=== PATIENT | female | born 1960 | race African-American/Black ===

== ENCOUNTER 2017-03-20 08:55 | Inpatient (IN) | payer MEDICARE, OTHER ==
[~2017-03-20] VITALS: Ht 167.6 cm; Wt 54.2 kg
--- NOTE | ~2017-03-20 | HP ---
Unit #: [id number] #: [id number] Patient: DAVID BARNHART [id number] [address] [place], [place] [address] [id number] E MR#: [id number] NAME: DAVID BARNHART ROOM: Age: 56 Sex: F Admission Date: 03/20/2017 : 1960 Attending Physician: Brittany Marie M.D. Primary Care Physician: Emilie Jack M.D. HISTORY AND PHYSICAL CHIEF COMPLAINT Nausea and vomiting. HISTORY OF PRESENT ILLNESS The patient is a 56-year-old female with history of breast cancer back in 2014 and bladder cancer status post chemo two weeks ago. Brought to the emergency room complaining of nausea and vomiting. The patient is a poor historian. The history is obtained by speaking with the patient's daughter and son at the bedside. The patient started complaining of abdominal pain and nausea and vomiting. The patient had a CT of the abdomen and pelvis that showed that the patient has thickening of the small bowel concerning for enteritis and is being admitted for the above reasons. The patient denies any fever. Denies any chills. PAST MEDICAL HISTORY Breast cancer, hypertension and bladder cancer. PAST SURGICAL HISTORY History of right mastectomy and left mastectomy and toe surgery. SOCIAL HISTORY The patient smokes a pack of cigarettes daily. She reports occasional alcohol use and marijuana use. FAMILY HISTORY Notable for her sister having allergic reaction. ALLERGIES Codeine. HOME MEDICATIONS The patient is on hydrocodone/acetaminophen, Flexeril, anastrozole, Norvasc and pantoprazole. REVIEW OF SYSTEMS Positive for abdominal pain. Positive for nausea and vomiting. Negative for chest pain. Negative for chills. Negative for shortness of breath. All other symptoms have been reviewed and none. PHYSICAL EXAMINATION GENERAL: The patient is lying in the bed, not in acute distress. VITALS: Temperature 97.9, pulse 57, respiratory rate 20, blood pressure 149/85, satting 99% on room air. HEENT: Head atraumatic, normocephalic. Pupils are equal, round, reactive Unit #: [id number] #: [id number] Patient: DAVID BARNHART to light and accommodation. Extraocular movements are intact. Dry mucous membranes. NECK: Supple. LUNGS: Decreased air entry at the bases. CARDIOVASCULAR: Regular rate and rhythm. ABDOMEN: Soft. Positive bowel sounds and tenderness in the epigastric region. EXTREMITIES: No cyanosis. No clubbing. NEUROLOGIC: Alert, awake, oriented. No gross focal motor deficit. DIAGNOSTIC STUDIES LAB DATA: UA shows 1+ leukocyte esterase, 2+ ketones, 1+ blood, 5-10 urine RBCs. INR is 1. Urine drug screen is positive for marijuana and opiates. WBC 7.8, hemoglobin 12.4, hematocrit 38.6, platelets 377. Sodium 140, potassium 3.6, chloride 101, bicarb 27, glucose 158, BUN 10, creatinine 0.9, calcium 10.3, AST 29, ALT 23, lipase 23, lactic acid 3.1. IMAGING: Chest x-ray shows hyperinflated lungs consistent with emphysema. Mild cardiomegaly. No active pulmonary disease. CARDIOVASCULAR: The EKG shows sinus bradycardia at a rate of 46 beats per minute and QTc of 420. ASSESSMENT 1. Sepsis. 2. Enteritis. 3. Emphysema. PLAN Plan to admit the patient to inpatient. Continue with sepsis protocol and continue with IV antibiotics with Cipro and Flagyl. Continue with Zofran for supportive care. Further recommendations will follow as more lab results are available. Dictated by Nick Paz/sean TD: 03/20/2017 16:28 JOB #: [id number] HISTORY AND PHYSICAL Page 1 of 1 X JOSÉ LUIS ROLAND MD X HISTORY AND PHYSICAL
--- NOTE | ~2017-03-20 | CO ---
Unit #: [id number] #: [id number] Patient: DAVID DE LOS SANTOS [id number] [address] [address] [id number] I MR#: [id number] NAME: DAVID DE LOS SANTOS ROOM: 308 Age: 56 Sex: F Admission Date: 03/20/2017 : 1960 Attending Physician: Betina Foster M.D. Primary Care Physician: Emilie Jack M.D. Consultation Date: 03/21/2017 CONSULTATION REPORT REASON FOR CONSULTATION Nausea and vomiting. HISTORY OF PRESENT ILLNESS Ms. De Los Santos is a 56-year-old female who has a history of breast cancer and then subsequently bladder cancer. She finished chemotherapy a couple of weeks ago. The patient presented with a history of nausea and vomiting and currently is similarly nauseated. Although she had initially some upper abdominal pain, she denies any pain at the moment. There is no history of diarrhea. She denies any history of fever, chills or rigors. Major symptoms is overwhelming nausea. PAST MEDICAL HISTORY 1. Breast cancer. 2. Hypertension. 3. Bladder cancer. PAST SURGICAL HISTORY 1. Right mastectomy. 2. Left mastectomy. 3. Toe surgery. SOCIAL HISTORY The patient smokes a pack of cigarettes daily. Occasionally uses marijuana. FAMILY HISTORY Significant for sister having some allergic reaction. ALLERGIES Codeine. HOME MEDICATIONS 1. Hydrocodone/acetaminophen combination. 2. Flexeril. 3. Anastrazole. 4. Norvasc. 5. Pantoprazole. REVIEW OF SYSTEMS Detailed review of organ systems significant for nausea and vomiting. No history of diarrhea. There is some history of abdominal pain. No history of headache, seizure, chest pain, syncope. No history of cough, expectoration, hemoptysis. No history of dysuria, hematuria, pyuria, focal Unit #: [id number] #: [id number] Patient: DAVID DE LOS SANTOS seizures, extremity weakness. PHYSICAL EXAMINATION GENERAL: She is comfortable, alert, oriented and is sitting up in bed. VITALS: Stable with a temperature of 98.1, pulse 48 per minute, respiratory rate 16, blood pressure 148/91. Weight is 120 pounds. Baseline is about 130 pounds in the past. HEENT: No pallor or icterus, lymphadenopathy or peripheral edema. LUNGS: Reasonable good air entry. HEART: Normal heart sounds. No murmurs to auscultation. ABDOMEN: Soft, nontender. Liver and spleen are not palpable. Bowel sounds are normal. DIAGNOSTIC STUDIES IMAGING: CT scan of the abdomen and pelvis yesterday. The latter shows mild periportal edema of the liver, as well as mild small bowel thickening within the mid to lower abdomen, thought to be jejunum or ileum; however, this is fairly nonspecific. LABORATORY: Normal white count and platelet count. Hemoglobin 11.0 with normal (1) indices. BUN and creatinine are normal. Albumin is preserved at 4.6. Blood glucose is 143. LFTs are also normal. ASSESSMENT The patient's nausea is most likely related to chemotherapy that she had just finished. Other possibilities include that of outlet obstruction with peptic ulcer disease with diagnostic endoscopy will be done tomorrow morning. Pros and cons of the procedure, potential risks and complications were discussed with the patient and she was reassured. Thank you for asking me to see this pleasant patient in consultation. Dictated by... Nick Bowling/claudette TD: 03/23/2017 11:03 JOB #: [id number] CC: Nick Kemp M.D. CONSULTATION REPORT Page 1 of 1 X Girma Multani MD CONSULTATION REPORT
--- NOTE | ~2017-03-20 | CO ---
Unit #: [id number] #: [id number] Patient: DAVID BARNHART [id number] [address] [place], [place] [address] [id number] I MR#: [id number] NAME: DAVID BARNHART ROOM: 308 Age: 56 Sex: F Admission Date: 03/20/2017 : 1960 Attending Physician: Betina Foster M.D. Primary Care Physician: Emilie Jack M.D. Consultation Date: 03/21/2017 CONSULTATION REPORT REASON FOR CONSULTATION Bradycardia. HISTORY OF PRESENT ILLNESS This is a 56-year-old -[place]ian female with a prior history of breast cancer in 2014 and again in 2016, status post bilateral mastectomy, hypertension, tobacco abuse, and bladder cancer status post chemotherapy two weeks ago. She also has an allergy to LAQUITA inhibitors with documented angioedema. She presented to the ER with nausea, vomiting, and abdominal pain. A CT of the abdomen and pelvis showed thickening of small bowel which is consistent with enteritis. EKG in the ER revealed sinus bradycardia with rates in the 40s and 50s. We were asked to see her to evaluate her for bradycardia. She denies a prior history of cardiac disease. She denies hyperlipidemia or diabetes. She does state that she has a history of "low heart rate" in the past. She says she was made to exercise on a treadmill to evaluate her heart rate response to exercise several years ago at [facility]. She states those tests were normal. She denies chest pain, palpitations, or syncopal episodes. PAST MEDICAL HISTORY 1. Breast cancer. 2. Bladder cancer, status post chemotherapy two weeks ago. 3. Hypertension. 4. Tobacco abuse. PAST SURGICAL HISTORY 1. Right mastectomy. 2. Left mastectomy. 3. Toe surgery. SOCIAL HISTORY She smokes one pack per day. She reports occasional alcohol use. She does report occasional marijuana use and her urine tox screen was positive for marijuana. FAMILY HISTORY She denies a family history of premature coronary artery disease. ALLERGIES LAQUITA inhibitors which cause angioedema and codeine. HOME MEDICATIONS 1. Hydrocodone/acetaminophen 5/325 mg one tab p.o. three times a day as needed for pain. Unit #: [id number] #: [id number] Patient: DAVID BARNHART 2. Flexeril 10 mg p.o. three times a day as needed for muscle spasms. 3. Anastrozole 1 mg p.o. daily. 4. Norvasc 10 mg p.o. daily. 5. Pantoprazole 40 mg p.o. daily. REVIEW OF SYSTEMS The patient is a poor historian. She became nauseous and started retching while taking her history and is positive for nausea and vomiting. Negative for chest pain, shortness of breath, fevers, chills, or body aches. A 10-point review of systems was conducted and is otherwise negative except for what was stated here and in the HPI. PHYSICAL EXAMINATION VITAL SIGNS: Temperature 97.7, heart rate 51, respiratory rate 16, blood pressure 124/83. HEENT: Head is atraumatic, normocephalic. Pupils are equal and reactive to light. Mucous membranes are moist and intact. NECK: Supple. Trachea is midline. No JVD. LUNGS: Clear, diminished in bases. Nonlabored respirations. CARDIOVASCULAR: S1, S2. Regular rate and rhythm. No significant murmurs, rubs, or gallops. ABDOMEN: Soft. Positive bowel sounds. Positive tenderness in upper abdomen. EXTREMITIES: Pulses are palpable. No pedal edema. No cyanosis. NEUROLOGIC: Alert and oriented x3. Moves all extremities equally and follows commands without difficulty. DIAGNOSTIC STUDIES LABORATORY: Sodium 141, potassium 3.6, chloride 106, BUN 11, creatinine 0.7, glucose 143, magnesium 1.7. Hemoglobin 11, hematocrit 33.2, white blood cell count 7.5, platelets 372,000. BNP 479. TSH was 1.04. Lactic acid 3.1 with repeat lactic acid 1.8. Urinalysis had 1+ leukocyte esterase, 1+ blood, 1+ bacteria. Blood cultures are pending. IMAGING: Chest x-ray showed hyperinflation and mild cardiomegaly. CT of the abdomen and pelvis showed thickening of small bowel which could indicate enteritis in the mid to lower abdomen. CARDIOVASCULAR: EKG shows sinus bradycardia with a ventricular rate of 46 and nonspecific T-wave abnormalities. ASSESSMENT 1. Sinus bradycardia. 2. Enteritis. 3. Sepsis. 4. Chronic obstructive pulmonary disease. 5. Tobacco abuse. PLAN 1. We will check a 2D echocardiogram. 2. Plan for outpatient event monitor. 3. TSH is normal. Thank you for asking us to see this patient. We appreciate the consult. Unit #: [id number] #: [id number] Patient: DAVID BARNHART Dictated by... Cydney Miller APRN for Nick Soni TD: 03/22/2017 13:12 JOB #: [id number] CONSULTATION REPORT Page 1 of 1 X X CONSULTATION REPORT
--- NOTE | ~2017-03-20 | EKG ---
PATIENT: DAVID BARNHART UNIT #: [id number] Ventricular Rate: 46 BPM Atrial Rate: 46 BPM P-R Interval: 158 ms QRS Duration: 78 ms Q-T Interval: 480 ms QTC Calculation(Bezet): 420 ms P Addington: 73 degrees Calculated R Addington: 15 degrees Calculated T Addington: 26 degrees Diagnosis Line: Sinus bradycardia Diagnosis Line: Possible Left atrial enlargement Diagnosis Line: Nonspecific T wave abnormality Diagnosis Line: Abnormal ECG Diagnosis Line: No previous ECGs available Diagnosis Line: Confirmed by YANIRA CLEMENTS MD ([id number]) on 03/21/2017 Diagnosis Line: 5:02:46 PM INTERPRETING MD: STARR BALLARD
--- NOTE | ~2017-03-20 | CT2 ---
[facility] A Service of [facility] RADIOLOGY TEXT RESULTS PATIENT: DAVID BARNHART LOCATION: C3A 308- : 62 UNIT #: [id number] AGE: [address]: Betina Foster MD SEX: F ORDER DR: [id number] [facility] [address]. [place], [place] [address] [id number] I MR#: [id number] Acc #: [id number] NAME: DAVID BARNHART : 1960 SEX: F STUDY DATE/TIME: 03/20/2017 14:33 UNIT: C3A PCU ROOM: 308 STUDY DESCRIPTION: CT Abd and Pelv W Cont Attending Physician: Esther Chávez M.D. Ordering Physician: Brittany Marie M.D. Primary Care Physician: Emilie Jack M.D. MEDICAL IMAGING REPORT This report is preliminary unless electronic signature is present EXAMINATION CT of abdomen and pelvis with contrast. DATE 03/20/2017 HISTORY Abdominal pain and vomiting since yesterday. Breast cancer. Bladder cancer. COMPARISON AP portable chest, 03/20/2017 at 10:20. Acute abdominal series 04/15/2007. There is no previous CT abdomen and pelvis for comparison at this institution. PROCEDURE 5 mm axial images from the lung bases through the lesser trochanters after intravenous contrast administration. Sagittal and coronal reformatted images were obtained. This CT exam was performed with one or more of the following radiation dose reduction techniques: automatic exposure control, adjustment of mA and/or kV according to patient size, and iterative reconstruction. FINDINGS Limited evaluation bowel due to lack of enteric contrast. Suspected mild generalized small bowel thickening in the mwy-vd-ymvar abdomen, thought to involve both jejunum and ileum. No evidence of high-grade large or small bowel obstruction. The obstruction that was thought to represent the appendix appears normal. There is mild periportal edema within the liver. The spleen, pancreas, adrenals and kidneys are within normal limits. No free air, free fluid or [facility] A Service of [facility] RADIOLOGY TEXT RESULTS PATIENT: DAVID BARNHART LOCATION: C3A 308-01 : 62 UNIT #: [id number] AGE: [address]: Betina Foster MD SEX: F ORDER DR: pneumatosis is identified. Imaged lung bases appear clear. PELVIS FINDINGS: Presumed small fibroid within the uterine fundus measuring 1.5 cm. Urinary bladder and rectum are normal. Trace pelvic free fluid. Lumbar levoscoliosis with degenerative disc and endplate changes. No acute or suspicious osseous abnormalities. IMPRESSION 1. Mild small bowel thickening within the ygr-jr-eeznu abdomen thought to involve the jejunum and ileum. Correlate for enteritis. 2. No evidence of high-grade large or small bowel obstruction. Limited evaluation due to lack of oral contrast. 3. Appendix appears normal. 4. Trace pelvic free fluid. 5. Mild periportal edema in the liver, nonspecific but can be seen in a variety of cases of abdominal inflammatory change. 6. Lumbar levoscoliosis. 7. Probable small uterine fibroid. Dictated by... Indigo Jenkins M.D. THIS IS AN ELECTRONICALLY VERIFIED REPORT Indigo Jenkins M.D. at 03/21/2017 1:53 PM LAYLA/isabelle TD: 03/20/2017 20:31 JOB #: [id number] MEDICAL IMAGING REPORT Page 1 of 1 COPY
--- NOTE | ~2017-03-20 | CR72 ---
[facility] A Service of [facility] RADIOLOGY TEXT RESULTS PATIENT: DAVID BARNHART LOCATION: [facility] : 62 UNIT #: [id number] AGE: [address]: Brittany Marie MD SEX: F ORDER DR: [id number] [facility] [address]. [place], [place] [address] [id number] E MR#: [id number] Acc #: [id number] NAME: DAVID BARNHART : 1960 SEX: F STUDY DATE/TIME: 03/20/2017 10:20 UNIT: [facility] ROOM: STUDY DESCRIPTION: CR Chest Single View Portable Attending Physician: Brittany Marie M.D. Ordering Physician: Brittany Marie M.D. Primary Care Physician: Emilie Jack M.D. MEDICAL IMAGING REPORT This report is preliminary unless electronic signature is present EXAM Portable chest. HISTORY Nausea, vomiting, chest, and abdominal pain since yesterday. TECHNIQUE Single AP view of the chest was obtained and compared with 04/07/2016. FINDINGS Single view of the chest shows hyperinflated lungs consistent with emphysema. There is mild cardiomegaly and the aorta is tortuous. The lungs are clear with no new infiltrate since the previous exam. Pulmonary vascular markings are normal. IMPRESSION Hyperinflated lungs consistent with emphysema. Mild cardiomegaly. No active pulmonary disease. Dictated by... Francisco Gonzalez M.D. THIS IS AN ELECTRONICALLY VERIFIED REPORT Francisco Gonzalez M.D. at 03/20/2017 4:54 PM ROSLYNF/carmen TD: 03/20/2017 12:20 JOB #: [id number] MEDICAL IMAGING REPORT Page 1 of 1 COPY
--- NOTE | ~2017-03-20 | DS ---
Unit #: [id number] #: [id number] Patient: DAVID BARNHART [id number] [address] [place], [place] [address] [id number] I MR#: [id number] NAME: DAVID BARNHART ROOM: 308 Age: 56 Sex: F Admission Date: 03/20/2017 : 1960 Discharge Date: 03/24/2017 Attending Physician: Betina Foster M.D. Primary Care Physician: Emilie Jack M.D. DISCHARGE SUMMARY REASON FOR ADMISSION Nausea and vomiting. HISTORY OF PRESENT ILLNESS/HOSPITAL COURSE The patient is a 56-year-old female with underlying history of breast cancer as well as current bladder carcinoma, who is currently undergoing chemotherapy as an outpatient. She received her last chemotherapy treatment approximately two weeks ago. She presented to the emergency department complaining of nausea and vomiting as well as increased abdominal pain. She underwent a CT of the abdomen and pelvis which showed findings consistent with thickening of the small bowel concerning for enteritis and she was admitted secondary to above. In regard to the same, we did place consultation to both oncology services as well as radiation oncology services and Dr. Ta as well as Dr. Blount of both services saw and evaluated patient. Dr. Keith Ta stated the patient could follow up as an outpatient and that he would discuss with the patient's oncologist who is currently at [facility] for further evaluation and/or treatment options in regard to her stage II bladder carcinoma. In regard to the patient's enteritis, we placed consultation to GI services. Dr. Multani performed an upper GI endoscopy on March 22, 2017. It did reveal stenosis/stricture in the distal third of the esophagus. Patient underwent dilatation of the aforementioned stricture. Afterwards imaging showed that stricture was resolved. The patient was started on a clear diet and gradually transitioned to a regular diet to which she has tolerated well. She has had no further nausea or emesis episodes while here. Blood cultures as well as urine culture both came back negative initially. Patient did meet sepsis criteria which was present on admission; however, this has been ruled out. At this point in time, the patient is clinically stable for discharge home. She was strongly advised to quit smoking altogether at time of discharge to which she stated that she will try. FINAL DISCHARGE DIAGNOSES 1. Intractable nausea and vomiting, now resolved. 2. 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 Multani. 3. Prior history of breast carcinoma. Unit #: [id number] #: [id number] Patient: DAVID BARNHART 4. Current history of stage II bladder carcinoma, currently undergoing treatment at [facility]. 5. Enteritis seen on CT, now resolving. 6. Prior history of bilateral mastectomy. 7. Ongoing tobacco abuse. 8. Gastroesophageal reflux disease. 9. Chronic muscle spasms. FINAL DISCHARGE MEDICATIONS 1. Arimidex 1 mg p.o. daily. 2. Norvasc 10 mg p.o. daily. 3. [place] 5/325 one tablet p.o. q.8 p.r.n. 4. Protonix 40 mg p.o. b.i.d. 5. Flexeril 10 mg p.o. q.8 p.r.n. DISCHARGE CONDITION Stable. DISCHARGE DISPOSITION Home. Dictated by... Nick Kemp/hayde TD: 03/24/2017 10:41 JOB #: [id number] DISCHARGE SUMMARY Page 1 of 1 X Betina Foster MD X DISCHARGE SUMMARY
--- NOTE | ~2017-03-20 | CO ---
Unit #: [id number] #: [id number] Patient: DAVID BARNHART [id number] [facility]. [place], [place] [address] [id number] I MR#: [id number] NAME: DAVID BARNHART ROOM: 308 Age: 56 Sex: F Admission Date: 03/20/2017 : 1960 Attending Physician: Betina Foster M.D. Primary Care Physician: Emilie Jack M.D. CONSULTATION REPORT REASON FOR EVALUATION Bladder cancer, please evaluate. HISTORY OF PRESENT ILLNESS This 56-year-old -[place] lady, followed at [facility] by Dr. Lopez, has a history of bilateral breast cancers, currently on anastrazole with no real evidence of recurrent disease, was found to have a muscle invading bladder cancer and she was offered cystectomy and she declined, presents for an opinion regarding chemoradiotherapy and having nausea, vomiting and abdominal discomfort currently. Her scans currently showed possible enteritis. Today on questioning she states that there is some discomfort in the belly but otherwise she has no other complaints. PAST MEDICAL HISTORY Bilateral breast cancer, status post mastectomies and was started on tamoxifen and she got scared about the tamoxifen causing cancer so she was switched over to anastrazole which she is taking currently. PAST SURGICAL HISTORY Otherwise past surgical history is bilateral mastectomy and minor toe surgery. FAMILY HISTORY Family history is positive for allergic rhinitis and skin reactions but negative for breast cancer. ALLERGIES Codeine. CHRONIC MEDICATIONS Anastrazole, Flexeril, hydrocodone, Norvasc and pantoprazole. REVIEW OF SYSTEMS Mainly remarkable for the swollen lip and abdominal discomfort. Mild degree of nausea. No hemoptysis, hematemesis, melena, hematuria. Otherwise six or eight systems are within normal limits. PHYSICAL EXAMINATION GENERAL: On exam awake, alert. She has her daughters in the room with her. LYMPHATIC: No palpable nodes. BREASTS: Bilateral mastectomy, without evidence of recurrence. ABDOMEN: Scaphoid. Diffuse tenderness. No rebound or rigidity. Unit #: [id number] #: [id number] Patient: DAVID BARNHART STEEL RIGGER: Grossly intact. PELVIS: The pelvic exam was not performed. DIAGNOSTIC STUDIES LABORATORY: CBC: Hemoglobin 11, hematocrit 33.2, white count 7500, platelets 372,000. Sodium 141, potassium 3.6, chloride 106, CO2 26, glucose 143 and BUN 11, creatinine 0.7. IMPRESSION This 56-year-old lady with history of bilateral breast cancer, status post bilateral mastectomy, currently on anastrazole with no evidence of recurrence, was recently found to have a bladder invading cancer which the recommendation was cystectomy and she declined, presented today here with minor abdominal discomfort, etc., and desires to have an opinion regarding her bladder cancer and if anything else can be done about it. So, at this point I explained to her that the next best from surgery is chemoradiotherapy, benefits/risks were explained. She is in full agreement. Will ask Dr. Keith Ta to see. Obtain the records from [facility]. May require a repeat cystoscopy. If we cannot obtain those records, plus/minus MRI to delineate if there is evidence of metastatic disease and continue anastrazole 1 mg p.o. daily for her breast cancer. Dictated by... Natanael Lee M.D. KISHORE/jefe TD: 03/21/2017 17:10 JOB #: [id number] CONSULTATION REPORT Page 1 of 1 X Natanael Lee MD X CONSULTATION REPORT
--- NOTE | ~2017-03-20 | CO ---
Unit #: [id number] #: [id number] Patient: DAVID DE LOS SANTOS [id number] [facility] [address]. [place], [place] [address] [id number] MR#: [id number] NAME: DAVID DE LOS SANTOS ROOM: 308 Age: 56 Sex: F Admission Date: 03/20/2017 : 1960 Attending Physician: Betina Foster M.D. Primary Care Physician: Emilie Jack M.D. Consultation Date: 03/23/2017 CONSULTATION REPORT LOCATION Bed 308. DIAGNOSES 1. History of breast carcinoma, status post bilateral mastectomy. 2. Admitted for enteritis with esophageal stricture. 3. Recent diagnosis of muscle invading bladder cancer stage II by history. HISTORY OF PRESENT ILLNESS Ms. David De Los Santos is a 56-year-old -[place]izen [place] female who does have a history of breast carcinoma. Patient was treated in 2014 with bilateral mastectomies. She did not require chemotherapy or radiation. She has been initially on tamoxifen, more recently on anastrozole therapy. According to patient and family, she has no evidence of recurrent disease. She presented to the emergency room here at [facility] with nausea and vomiting and abdominal pain. CT scans of the abdomen and pelvis demonstrated some thickening of the bowel wall concerning for enteritis but no obvious obstruction. The patient underwent esophagogastroduodenoscopy with Dr. Girma Multani and was found to have esophageal stricture. This procedure dated March 22, 2017. Patient had some dilatation. There was also some irritation noted. 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 She has been followed by Dr. Bassam Mckeon of [facility]. Patient had apparent biopsies and has been receiving neoadjuvant chemotherapy with Dr. Amadeo Lopez at the [facility]. The current plan is for a radical cystectomy with possible reconstruction following chemo. The patient has great concerns expressed today regarding this therapeutic approach and wishes to explore other options. RECOMMENDATIONS I have spent a great deal of time today discussing patient's disease process as well as her clinical options. She was interested in immunotherapy alone; however, I informed her that this is not an accepted modality at this time and that this immunotherapy is typically used only for failure of initial treatments. I have explained that patient could certainly continue with chemotherapy followed by radical resection or she may wish to explore organ preservation. This involves cisplatin based chemotherapy along with external beam radiotherapy. There is excellent clinical evidence for control utilizing this option. (1) RTOG studies as well as large single institutional trials such as that at [facility] have demonstrated five year disease free survival of approximately 73% with a combination chemoradiotherapy. Unit #: [id number] #: [id number] Patient: DAVID DE LOS SANTOS Essential advantage of this approach is that salvage cystectomy may also be considered for those who fail either initial combined therapy or completed definitive management. The patient wishes to undergo chemoradiotherapy as definitive management, a maximum TURBT must be performed initially. Chemotherapy itself may consist of cisplatin or carboplatin, though fluorouracil and mitomycin C is an alternative to that therapy. Patient will then require rather careful post treatment surveillance to rule out any evidence of recurrent disease. I have discussed these issues with the patient and she understands and accepts these things. The patient will think about her therapeutic options and let us know something in one week. In the meantime, I will obtain all records from the [facility] including pathology reports and imaging studies which hopefully include a MRI of the pelvis which would better delineate depth of invasion than CT scan. The patient has also been seen by Dr. Natanael Lee who has provided recommendations regarding chemotherapy. It was my pleasure to participate in her care. PAST MEDICAL HISTORY 1. Hypertension. 2. Breast cancer. 3. Bladder cancer. PAST SURGICAL HISTORY The patient has undergone bilateral mastectomy and toe surgery. MEDICATIONS 1. Hydrocodone/acetaminophen for pain. 2. Flexeril 10 mg three times a day. 3. Anastrozole 1 mg a day. 4. Norvasc 10 mg a day. 5. Pantoprazole 40 mg a day. ALLERGIES Patient has drug allergies to LAQUITA inhibitors which lead to angioedema as well as codeine. NUTRITION Nutritional status is stable. PAIN MANAGEMENT Well controlled. SOCIAL HISTORY Patient is a one pack a day smoker. She has occasional alcohol use. She has been strongly cautioned against the use of tobacco and she understands that she must stop. Patient does have occasional marijuana use. The patient has no occupational exposure to carcinogens. FAMILY HISTORY Patient has history of coronary artery disease. No other cluster malignancies. REVIEW OF SYSTEMS Patient denies seizure activity. She denies significant headache. She has had no recurrence of her breast. Her chest is unremarkable. She has mild shortness of breath. She does have history of spitting up phlegm due Unit #: [id number] #: [id number] Patient: DAVID DE LOS SANTOS to smoker's cough and reported significant hematuria prior to surgery and initial chemotherapy. She denies hematuria at this time. Bowel movements are unremarkable. PHYSICAL EXAMINATION VITAL SIGNS: Temperature 98.4, pulse 71, respirations 18, O2 saturation 100%, BP 138/101. Height 5 foot 6 inches, weight 119, BMI 20. HEENT: Pupils equal, round, and reactive to light and accommodation. Extraocular movements within normal limits. NECK: Palpable and found to be without evidence of adenopathy. LUNGS: Lungs are auscultated. Breath sounds are distant but clear. CARDIOVASCULAR: Regular rate and rhythm without gallop or murmur at this time. 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 ABDOMEN: Soft, nontender. No evidence of mass. Bowel sounds positive. EXTREMITIES: Without clubbing, cyanosis, or edema. GENITALIA/RECTAL: Not performed. DIAGNOSTIC STUDIES LABORATORY: Glucose 104, creatinine 0.8, sodium 137, potassium 3.9, calcium 10. Total protein 8.5, albumin 4.6. Liver enzymes within normal limits. WBC 9.7, hemoglobin 11.8, platelet count 314,000. Approximately 65 minutes spent discussing case with patient. Dictated by... Keith Ta M.D. DONTAE/hayde TD: 03/23/2017 11:49 JOB #: [id number] CC: Nick Alarcon M.D. Imran S. Nasir, M.D. Ashok Kapur, M.D. CONSULTATION REPORT Page 1 of 1 X Keith Ta MD X CONSULTATION REPORT
--- NOTE | ~2017-03-20 | OR ---
Unit #: [id number] #: [id number] Patient: DAVID BARNHART [id number] [address] [place], [place] [address] [id number] MR#: [id number] NAME: DAVID BARNHART ROOM: 308 Date of Procedure: 03/22/2017 Admission Date: 03/20/2017 Surgeon: Girma Multani M.D. : 1960 Attending Physician: Betina Foster M.D. Primary Care Physician: Emilie Jack M.D. OPERATIVE REPORT PRIMARY CARE PHYSICIAN Emilie Jack M.D. PREOPERATIVE DIAGNOSES Nausea, vomiting, dysphagia, and epigastric pain. PROCEDURES PERFORMED Upper gastrointestinal endoscopy and dilation with a 15 to 18 mm balloon up to 16.5 mm. POSTOPERATIVE DIAGNOSES The patient had a long segment of distal esophageal stenosis with overall benign appearance. This was dilated to 16.5 mm with a TTS balloon. Otherwise, examination was normal up to third part of duodenum. The patient also had a small hiatus hernia. RECOMMENDATIONS Suggest mechanically soft diet as the patient will have hard time chewing and getting solid meats and dry sandwiches in the area. In addition, we will continue the current dose of Protonix and Reglan. SEDATION USED Procedural sedation. DESCRIPTION OF PROCEDURE Following detailed explanation of potential risks and complications of an upper endoscopy, namely perforation, bleeding, and complication related to sedation, the patient was brought to GI lab and laid in left lateral decubitus position. Lubricated tip of the Olympus video upper endoscope was passed through the bite block into the proximal esophagus under direct vision. The entire esophageal mucosa was examined. The patient was noted to have stenosis at the distal 1/3 of the esophagus. It was gently dilated with the shaft of the scope causing minor mucosal tear. The scope was then advanced into the gastric cavity, a small hiatus hernia was noted and traversed. The scope was then advanced into the gastric cavity. Mucosa of the fundus, body, and antrum was examined and appeared unremarkable. Pylorus was intubated with visualization of the normal duodenal bulb and second and third part of the duodenum. Upon withdrawal and retroflexion; incisura, cardia, and greater curve was examined and no additional findings were noted. The scope was then withdrawn in the distal esophagus. Step-up dilation of the distal esophageal stricture segment was done using a 15 to 18 mm balloon which was inflated up to 16.5 Unit #: [id number] #: [id number] Patient: DAVID BARNHART mm. Minimal bleeding was noted and photodocumentation was obtained. Excellent dilation was achieved. The scope was then withdrawn all the way up to pharynx. No additional findings were noted. The patient tolerated the procedure without any postprocedure complications. Dictated by... Nick Bowling/rosibel TD: 03/22/2017 13:26 JOB #: [id number] OPERATIVE REPORT Page 1 of 1 X Girma Multani MD X PROCEDURE OPERATIVE NOTE
[~2017-03-20 08:55] MED LIST: AMLODIPINE BESY10 MG PO; HYDROCODON-ACE1 EAC7 PO; LISINOPRIL10 MG PO; MULTI-VITAMIN1 TAB PO; PROTONIX PO; VIT B-12 PO; VITAMIN D PO
[2017-03-20 09:57] LABS: URINE SOURCE CLEAN CATCH
[2017-03-20 10:01] LABS: URINE APPEARANCE SL HAZY; URINE BILIRUBIN NEG (NEG); URINE BLOOD 1+ (NEG); URINE COLOR YELLOW; URINE GLUCOSE NORM (NORM); URINE KETONE 2+ (NEG); URINE LEUKOCYTE ESTERASE 1+ (NEG); URINE NITRATE NEG (NEG); URINE PROTEIN 1+ (NEG); URINE UROBILINOGEN NORM (NORM)
[2017-03-20 10:31] LABS: CULTURE INDICATED? YES; URINE BACTERIA AUWI 1+ (NEGATIVE); URINE MUCUS PRESENT; URINE SQUAMOUS EPITHELIAL CELL FEW /[HPF]
[2017-03-20 10:44] LABS: PARTIAL THROMBOPLASTIN TIME 24.6 SECONDS (23.5-31.3)
[2017-03-20 10:52] LABS: AMPHETAMINE NEG (NEG); BARBITURATES NEG (NEG); BENZODIAZEPINES NEG (NEG); COCAINE NEG (NEG); MARIJUANA POS (NEG); OPIATES POS (NEG); TRICYCLIC ANTIDEPRESSANTS NEG (NEG); U METHADONE NEG (NEG)
[2017-03-20 10:59] LABS: ALBUMIN SERUM 4.6 g/dL (3.5-5.0); ALKALINE PHOSPHATASE 75 U/L (32-92); ALT (SGPT) 23 U/L (10-40); AST (SGOT) 29 U/L (10-42); BILIRUBIN, DIRECT 0.1 mg/dL (0.0-0.2); BILIRUBIN,TOTAL 0.1 mg/dL (0.2-2.0); BLOOD UREA NITROGEN 10 mg/dL (9-23); BUN/CREATININE RATIO 11.11; CALCIUM SERUM 10.3 mg/dL (8.4-10.2); CARBON DIOXIDE 27 mmol/L (22-31); CHLORIDE 101 mmol/L (100-111); CREATININE SERUM 0.9 mg/dL (0.6-1.4); GLOM FILT RATE Estimated 83.5 mL/min (>60); GLUCOSE FASTING 158 mg/dL (70-110); LIPASE 23 U/L (22-51); POTASSIUM 3.6 mmol/L (3.5-5.1); PROTEIN TOTAL SERUM 8.5 g/dL (6.0-8.3); SODIUM 140 mmol/L (135-145)
[2017-03-20 11:00] LABS: BASOPHIL% 0.5 % (0-2.5); DIFF IND NO; HEMATOCRIT 38.6 % (35.0-45.0); HEMOGLOBIN 12.4 gm/dL (12.0-16.0); LYMPHOCYTE# 1.1 X10e3 (1.0-3.5); LYMPHOCYTE% 13.8 % (17.0-45.0); MEAN CELL VOLUME 84.1 FL (83-96); MEAN CORPUSCULAR HEMOGLOBIN 26.9 PG (28-34); MEAN PLATELET VOLUME 8.3 FL (6.5-11.5); MONOCYTE# 0.3 X10e3 (0-1.0); NEUTROPHIL# 6.3 X10e3 (1.5-7.1); NEUTROPHIL% 81.7 % (40-75); PLATELET COUNT 377 X10e3 (140-420); RED BLOOD COUNT 4.59 X10e (3.90-5.30); WHITE BLOOD COUNT 7.8 X10e3 (4.0-10.5)
[2017-03-20 11:02] LABS: ALCOHOL BLOOD <5 mg/dL (0)
[2017-03-20] MEDS ORDERED: HYDROCODON-ACE1 EAC7 PO (13:32)
[2017-03-20] MEDS ORDERED: PATIENT'S PHARMACY (13:32)
[2017-03-20] MEDS ORDERED: FLEXERIL10 MG PO (13:33)
[2017-03-20] MEDS ORDERED: ANASTROZOLE1 MG PO (13:33)
[2017-03-20] MEDS ORDERED: NORVASC10 MG PO (13:33)
[2017-03-20] MEDS ORDERED: PANTOPRAZOLE SO40 MG PO (13:34)
[2017-03-20 19:02] LABS: ARTERIAL BLOOD GAS PCO2 41.3 mmHg (35.0-45.0); ARTERIAL BLOOD GAS PO2 69.7 mmHg (80.0-100); ARTERIAL BLOOD GAS pH 7.424 (7.350-7.450)
[2017-03-20 19:03] LABS: ARTERIAL BLD GAS O2 SATURATION 93.9 % (90.0-100.0); ARTERIAL BLOOD GAS ALLEN TEST NORMAL; ARTERIAL BLOOD GAS ART SITE RIGHT RADIAL; ARTERIAL BLOOD GAS DELIVERY ROOM AIR; ARTERIAL BLOOD GAS MET HB 0.7 %sat (0.0-2.0); ARTERIAL DRAW? YES
[2017-03-21 05:41] LABS: HEMATOCRIT 33.2 % (35.0-45.0); MEAN CELL VOLUME 82.5 FL (83-96); MEAN CORPUSCULAR HEMOGLOBIN 27.2 PG (28-34); MEAN PLATELET VOLUME 8.6 FL (6.5-11.5); RED BLOOD COUNT 4.03 X10e (3.90-5.30); RED CELL DISTRIBUTION WIDTH 19.9 % (11.0-15.5); WHITE BLOOD COUNT 7.5 X10e3 (4.0-10.5)
[2017-03-21 05:59] LABS: BUN/CREATININE RATIO 15.71; CALCIUM SERUM 9.6 mg/dL (8.4-10.2); CREATININE SERUM 0.7 mg/dL (0.6-1.4); MAGNESIUM 1.7 mg/dL (1.6-3.0); POTASSIUM 3.6 mmol/L (3.5-5.1)
[2017-03-22 05:21] LABS: HEMATOCRIT 35.4 % (35.0-45.0); HEMOGLOBIN 11.8 gm/dL (12.0-16.0); MEAN CELL VOLUME 83.2 FL (83-96); MEAN CORPUSCULAR HEMOGLOBIN 27.8 PG (28-34); MEAN CORPUSCULAR HGB CONC 33.4 g/dL (30-36); MEAN PLATELET VOLUME 8.2 FL (6.5-11.5); RED BLOOD COUNT 4.25 X10e (3.90-5.30); RED CELL DISTRIBUTION WIDTH 19.4 % (11.0-15.5); WHITE BLOOD COUNT 9.7 X10e3 (4.0-10.5)
[2017-03-22 06:06] LABS: BUN/CREATININE RATIO 7.5; CREATININE SERUM 0.8 mg/dL (0.6-1.4); GLOM FILT RATE Estimated 96.3 mL/min (>60); POTASSIUM 3.9 mmol/L (3.5-5.1)
[2017-03-23 12:13] LABS: MAGNESIUM 1.5 mg/dL (1.6-3.0)
[2017-03-24 06:27] LABS: HEMATOCRIT 37.5 % (35.0-45.0); HEMOGLOBIN 12.5 gm/dL (12.0-16.0); MEAN CELL VOLUME 82.1 FL (83-96); MEAN CORPUSCULAR HEMOGLOBIN 27.4 PG (28-34); MEAN CORPUSCULAR HGB CONC 33.4 g/dL (30-36); MEAN PLATELET VOLUME 8.5 FL (6.5-11.5); RED BLOOD COUNT 4.57 X10e (3.90-5.30); RED CELL DISTRIBUTION WIDTH 19.8 % (11.0-15.5); WHITE BLOOD COUNT 7.8 X10e3 (4.0-10.5)
[2017-03-24 06:41] LABS: BUN/CREATININE RATIO 8.88; CALCIUM SERUM 9.3 mg/dL (8.4-10.2); CREATININE SERUM 0.9 mg/dL (0.6-1.4); GLOM FILT RATE Estimated 83.5 mL/min (>60); MAGNESIUM 1.9 mg/dL (1.6-3.0); POTASSIUM 3.2 mmol/L (3.5-5.1)
[2017-03-24] MEDS ORDERED: TYL325 PO (11:22)
== END 2017-03-24 13:02 | disposition home health service (06) | DRG 872 ==
LOC: CED 08:55 → C3A PCU 15:34 → CED 16:04 → C3A PCU 16:04
PROVIDERS: Emergency Medicine; Family Medicine; Internal Medicine; Internal Medicine Gastroenterology; Nurse Practitioner Family
PROC: B24BYZZ Ultrasonography of Heart with Aorta using Other Contrast (ICD-10-PCS; 2017-03-21)
PROC: 0D738ZZ Dilation of Lower Esophagus, Via Natural or Artificial Opening Endoscopic (ICD-10-PCS; principal; 2017-03-22 11:36)
DX: A41.9 Sepsis, unspecified organism (principal); I47.2 Ventricular tachycardia; J43.9 Emphysema, unspecified; K22.2 Esophageal obstruction; I08.1 Rheumatic disorders of both mitral and tricuspid valves; C67.9 Malignant neoplasm of bladder, unspecified; Z85.3 Personal history of malignant neoplasm of breast; I10 Essential (primary) hypertension; F17.210 Nicotine dependence, cigarettes, uncomplicated; K52.9 Noninfective gastroenteritis and colitis, unspecified; R00.1 Bradycardia, unspecified; R11.2 Nausea with vomiting, unspecified; T45.1X5A Adverse effect of antineoplastic and immunosuppressive drugs, initial encounter; K44.9 Diaphragmatic hernia without obstruction or gangrene; E87.6 Hypokalemia; K21.9 Gastro-esophageal reflux disease without esophagitis; M62.838 Other muscle spasm
CPT/HCPCS: 36415; 36600; 71010; 74177; 80048; 80076; 80307; 81003; 82803; 83605; 83690; 83735; 83880; 84132; 84443; 85025; 85027; 85610; 85730; 87040; 87086; 93005; 93306; 96361; 96374; 96375; 96376; 97161; 97165; 99285; C9113; G0480; G8978-GP; G8979-GP; G8980-GP; G8987-GO; G8988-GO; G8989-GO; J0360; J1956; J2060; J2250; J2405; J2765; J3010; J3475; Q9967